=== PATIENT | male | born 1985 | race Caucasian/White ===

== ENCOUNTER 2024-02-20 17:09 | Emergency (ER) | payer BC ==
[2024-02-20] MEDS ORDERED: Sodium Chloride 0.9% 10 ML Syringe FLUSH PRN (17:40)
[2024-02-20 17:54] LABS: BASOPHILS PERCENT AUTO 0.6 % (0.0-1.0); EOSINOPHILS PERCENT AUTO 2.1 % (1.0-3.0); HEMATOCRIT 44.6 % (40.0-54.0); HEMOGLOBIN 15.6 g/dL (14.0-18.0); MEAN CORPUSCULAR HEMOGLOBIN 30.3 pg (27.0-34.0); MEAN CORPUSCULAR VOLUME 86.6 fL (80-100); MONOCYTES PERCENT AUTO 8.1 % (2-8); NEUTROPHILS PERCENT AUTO 72.2 % (42.2-75.2); PLATELET COUNT,PLT 279 10^3/uL (150-450); RED BLOOD CELL COUNT 5.15 10^6/uL (4.6-6.2); WHITE BLOOD CELL COUNT,WBC 10.8 10^3/uL (5.0-10.0)
[2024-02-20] MEDS: Ondansetron 4 MG/2 ML SDV IVPUSH ONE (18:02)
[2024-02-20] MEDS: Ketorolac 30 MG/ML SDV IVPUSH ONE (18:02)
[2024-02-20] MEDS: HYDROmorphone 0.5 MG/0.5 ML Syringe IVPUSH ONE (18:02)
[2024-02-20 18:04] LABS: BILIRUBIN,URINE NEGATIVE (NEGATIVE); COLOR,URINE YELLOW (YELLOW); GLUCOSE,URINE NEGATIVE (NEGATIVE); KETONES,URINE NEGATIVE (NEGATIVE); LEUKOCYTE ESTERASE,URINE NEGATIVE (NEGATIVE); NITRITE,URINE NEGATIVE (NEGATIVE); OCCULT BLOOD,URINE SMALL (NEGATIVE); PH,URINE 5.5 (5.0-9.0); PROTEIN,URINE 30 (NEGATIVE); UROBILINOGEN,URINE 0.2 mg/dL (0.2-1.0)
[2024-02-20 18:05] LABS: APPEARANCE,URINE SLIGHTLY CLOUDY (CLEAR)
[2024-02-20 18:14] LABS: A/G RATIO 1.1; ALBUMIN 4.1 g/dL (3.4-5.0); ANION GAP 11.9 mEq/L (7-13); BILIRUBIN TOTAL 0.6 mg/dL (0.2-1.0); BUN/CREATININE RATIO 10.2 (No establ ref range); C-REACTIVE PROTEIN 0.64 ng/dL (<=0.50); CALCIUM 9.2 mg/dL (8.5-10.1); CREATININE 1.37 mg/dL (0.70-1.30); EST CRCL DRUG DOSING (CG) 78.67 mL/min; MAGNESIUM 2.1 mg/dL (1.8-2.4); POTASSIUM,K 3.9 mmol/L (3.5-5.1); PROTEIN TOTAL,TP 7.7 g/dL (6.4-8.2)
[2024-02-20 18:16] LABS: EPITHELIAL CELLS,URINE FEW /HPF (NOT SEEN); WBC,URINE 0-5 /HPF (0-5/HPF)
[2024-02-20 18:17] LABS: BACTERIA,URINE FEW /HPF (0-FEW/HPF); MUCUS,URINE RARE /LPF (NOT SEEN)
[2024-02-20] MEDS: Take Home: Ondansetron 4 MG Tab.DIS, 5 Tab Pack PO ONE (19:31)
[2024-02-20] MEDS: Take Home: Acetaminophen/HYDROcodone 325-5 MG, 5 Tab Pack PO ONE (19:32)
[2024-02-20] MEDS: Take Home: Tamsulosin HCl 0.4 MG, 6 Cap Pack PO ONE (19:32)
== END 2024-02-20 19:40 | disposition home or self-care (01) ==
LOC: DL.ED 17:09
DX: N13.2 Hydronephrosis with renal and ureteral calculous obstruction (principal); Z88.0 Allergy status to penicillin; Z88.8 Allergy status to other drugs, medicaments and biological substances
CPT/HCPCS: 36415; 74176; 80053; 81001; 83735; 85025; 86140; 96374; 96375; 99284; A9270; J1885; J2405; Q0162